=== PATIENT | male | born 1965 | race Caucasian/White ===

== ENCOUNTER 2018-01-14 12:09 | Emergency (ER) | payer SELFPAY ==
[2018-01-14 12:21] VITALS: BP 162/102; TEMP 98.6; O2SAT 99
--- NOTE | 2018-01-14 12:22 | ED.PDOC ---
History of Present Illness - General Chief Complaint: General Stated Complaint: R arm discomfort/numbness x 1 week Time Seen by Provider: 01/14/18 12:19 Source: patient, RN notes reviewed, Vital Signs reviewed Exam Limitations: no limitations - History of Present Illness Timing/Duration: 1 week Severity: mild Improving Factors: immobilization Worsening Factors: movement Associated Symptoms: denies symptoms Allergies/Adverse Reactions: Allergies NO KNOWN ALLERGY Allergy (Verified 01/14/18 12:13) Home Medications: Ambulatory Orders Celecoxib 100 mg PO BID #14 cap 01/14/18 Cyclobenzaprine HCl [Flexeril] 10 mg PO TID PRN #20 tab 01/14/18 Levetiracetam [Keppra] 500 mg PO BID 01/14/18 Review of Systems - Review of Systems Constitutional: States: no symptoms reported EENTM: States: no symptoms reported Respiratory: States: no symptoms reported Cardiology: States: no symptoms reported Gastrointestinal/Abdominal: States: no symptoms reported Genitourinary: States: no symptoms reported Musculoskeletal: States: joint pain, muscle stiffness Skin: States: no symptoms reported Neurological: States: no symptoms reported. Denies: numbness, paresthesia, tingling, tremors, weakness Endocrine: States: no symptoms reported Hematologic/Lymphatic: States: no symptoms reported Past Medical History (General) - Patient Medical History Hx Seizures: Yes Hx Stroke: No Hx Congestive Heart Failure: No Hx Hypertension: Yes Hx Diabetes: No - Vaccination History Hx Tetanus, Diphtheria Vaccination: - unknown - Social History Hx Tobacco Use: Yes Hx Chewing Tobacco Use: Yes Family Medical History - Family History Mother Family History: No Known Physical Exam - Physical Exam General Appearance: Alert, Comfortable Ears, Nose, Throat: hearing grossly normal, normal ENT inspection, normal pharynx Neck: non-tender, full range of motion, supple, normal inspection Respiratory: chest non-tender, lungs clear, normal breath sounds, no respiratory distress, no accessory muscle use Cardiovascular/Chest: normal peripheral pulses, regular rate, rhythm, no edema, no gallop, no JVD, no murmur Peripheral Pulses: radial,right: 2+ Gastrointestinal/Abdominal: non tender, soft Back Exam: normal inspection, no CVA tenderness, no vertebral tenderness Extremity: normal range of motion, other - focal tenderness of the bicept tendong, pain to forced extention of right arm over same area, no redness 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 Copy, Patient Portal Self Enrollment Instructions: Tendonitis (DC) Diet: resume usual diet Activity: other - no activity to right arm for one week Prescriptions: Celecoxib 100 mg PO BID #14 cap Cyclobenzaprine HCl [Flexeril] 10 mg PO TID PRN #20 tab PRN Reason: Pain Home Medications: Ambulatory Orders Celecoxib 100 mg PO BID #14 cap 01/14/18 Cyclobenzaprine HCl [Flexeril] 10 mg PO TID PRN #20 tab 01/14/18 Levetiracetam [Keppra] 500 mg PO BID 01/14/18
== END 2018-01-14 12:33 | disposition home or self-care (01) ==
LOC: ER 12:09
DX: M75.21 Bicipital tendinitis, right shoulder (principal); I10 Essential (primary) hypertension; R56.9 Unspecified convulsions; Z79.899 Other long term (current) drug therapy

== ENCOUNTER 2018-11-10 14:56 | Inpatient (IN) | payer SELFPAY ==
[2018-11-10] MEDS ORDERED: ONDANSETRON INJ 4 MG/2 ML VIAL IV ONE (17:07)
[2018-11-10] MEDS ORDERED: SODIUM CHLORIDE 0.9% (FLUSH) 10 ML SYG IV PRN ×2 (17:07→20:41)
[2018-11-10] MEDS ORDERED: SODIUM CHLORIDE 0.9% 1000ML 1,000 ML IVS ONE (17:07)
[2018-11-10] MEDS ORDERED: KETOROLAC TROMETHAMINE INJ 30 MG/ML VIAL IV ONE (17:07)
--- NOTE | 2018-11-10 17:43 | ED.PDOC ---
History of Present Illness - General Chief Complaint: GI Problem Stated Complaint: Nasal congestion, N/V/D, fever Time Seen by Provider: 11/10/18 17:07 Information Source: patient Exam Limitations: no limitations - History of Present Illness Initial Comments: PT PRESENTS TO THE ED WITH COMPLAINT OF NAUSEA, VOMITING, DIARRHEA, NASAL CONGESTION, AND HEADACHE. PT REPORTS 1-2 WATERY FOUL SMELLING STOOLS DAILY. PT ADMITS TO HEAVY ALCOHOL USE DAILY. HE DENIES, FEVER, CHILLS, OR ABD PAIN. Improving Factors: nothing Worsening Factors: nothing Associated Symptoms: diarrhea, fatigue, headache, nausea/vomiting Review of Systems - Review of Systems Constitutional: States: malaise. Denies: chills, fever EENTM: States: nose congestion. Denies: throat pain Respiratory: Denies: cough, short of breath Cardiology: Denies: chest pain, palpitations Gastrointestinal/Abdominal: States: diarrhea, nausea, vomiting. Denies: abdominal pain Genitourinary: Denies: dysuria, frequency Musculoskeletal: Denies: joint pain, joint swelling Skin: Denies: dryness, lesions Neurological: States: headache. Denies: numbness Past Medical History (General) - Patient Medical History Hx Seizures: Yes Hx Stroke: No Hx Congestive Heart Failure: No Hx Hypertension: Yes Hx Diabetes: No Surgical History: tonsillectomy - Vaccination History Hx Tetanus, Diphtheria Vaccination: - unknown Hx Influenza Vaccination: No Hx Pneumococcal Vaccination: No - Social History Hx Tobacco Use: No Hx Chewing Tobacco Use: Yes Hx Alcohol Use: No Family Medical History - Family History Mother Family History: No Known Living Status: Still Living Physical Exam - Physical Exam General Appearance: Alert, No apparent distress, Well Developed, Well Hydrated, Well Nourished Eyes, Ears, Nose, Throat Exam: normal ENT inspection Neck: normal inspection Respiratory: lungs clear, normal breath sounds, no respiratory distress Cardiovascular/Chest: regular rate, rhythm, no murmur Gastrointestinal/Abdominal: normal bowel sounds, non tender, soft Extremity: non-tender, normal inspection Neurologic: alert, normal mood/affect, oriented x 3 Skin Exam: normal color, warm/dry Departure - Departure Clinical Impression: Hypertension, Hyponatremia, Headache, Acute gastroenteritis, Alcohol abuse Time of Disposition: 18:53 Disposition: Admit Patient Condition: Fair Departure Forms: ED Discharge - Pt. Copy, Patient Portal Self Enrollment Referrals: UNKNOWN,PHYSICIAN [Primary Care Provider] - 1-2 Weeks Decision To Admit - Decistion To Admit Decision to Admit Reason: Admit from ER Decision to Admit Date: 11/10/18 Decision to Admit Time: 18:54 - CASE DISCUSSED WITH FADUMO SHOOK TESTING ANALYST WHO AGREES TO ADMIT
[2018-11-10] MEDS ORDERED: LABETALOL INJ 5 MG/ML VIAL IV ONE (18:55)
--- NOTE | 2018-11-10 20:17 | HP ---
SUPERVISING PHYSICIAN: Doroteo Paris M.D. CHIEF COMPLAINT: Nasal congestion, nausea and vomiting, diarrhea and fever. HISTORY OF PRESENT ILLNESS: This is a 53 year-old male patient with no significant past medical history. He came to the Emergency Room with complaints of nausea, vomiting, diarrhea, nasal congestion with concern for sinus infection. He said that has been pretty much going on since Friday. He could not really tell me exactly how high his fever has gotten. He went to the Emergency Room and was seen by the E. R. physician who did some labs that showed hyponatremia. Sodium was 125. His diarrhea had only been since yesterday afternoon and this morning. He has not had any since this morning. He has not been around anyone who is sick. He does not know if he really ate anything abnormal. He was also noted to have a significantly high blood pressure. In the E. R. he was given some Toradol for his headache and Labetalol 10 mg times 1. This did bring his blood pressure down a little bit. At time of examination the patient is alert. States that he does have a little problem with equilibrium lately but does not feel dizzy at this time. He also got some Zofran in the Emergency Room as well. PAST MEDICAL HISTORY: None. PAST SURGICAL HISTORY: None. CURRENT MEDICATIONS: 1. He uses BC powder daily. ALLERGIES: NO KNOWN DRUG ALLERGIES. FAMILY HISTORY: Both parents have hypertension. SOCIAL HISTORY: No smoking. He does drink about a 12 pack of beer most nights of the week. No illicit drugs. REVIEW OF SYSTEMS: CONSTITUTIONAL: No fever or chills. No recent weight loss or weight gain. HEENT: Positive for headaches. No ear pain. No eye pain. A little bit of nasal stuffiness. No throat pain. CARDIOVASCULAR: No chest pain, palpitations or peripheral edema. RESPIRATORY: No cough, hemoptysis or pleuritic chest pain. GASTROINTESTINAL: Positive for nausea, vomiting, diarrhea. No constipation. No significant abdominal pain. GENITOURINARY: No dysuria, frequency or flank pain. HEMATOLOGIC: No easy bruising or transfusion reaction. ENDOCRINE: No polydipsia, polyuria or polyphagia. No heat or cold intolerance. SKIN: No lesions, rashes or wounds. PHYSICAL EXAMINATION: VITAL SIGNS: Blood pressure 184/101, heart rate 66, respiratory rate 16, temperature 98.4, oxygen saturation 98%. GENERAL: Mr. Murray is a 53 year-old male patient in no distress. CHEST: Lungs are clear to auscultation bilaterally. CARDIOVASCULAR: Regular rate and rhythm. Normal S1 and S2. ABDOMEN: Soft. Positive bowel sounds. GENITOURINARY: Exam is deferred. EXTREMITIES: Lower extremities with no edema. NEUROLOGIC: The patient is alert and oriented. LABORATORY: White count 7.7, hemoglobin 14.0, hematocrit 39.7, platelet count 219. Sodium 125, potassium 3.7, chloride 89, CO2 is 25, BUN is less than 5, creatinine 0.58, glucose 102, calcium 9.3. Bilirubin 1.2. ASSESSMENT: 1. Hyponatremia. 2. Hypertension. 3. Gastroenteritis. 4. Intractable headache. 5. ETOH abuse. PLAN: At this time will place the patient on normal saline at 125. Will recheck the labs in the morning and see we have any improvement. Additionally it is quite concerning that he has such a high blood pressure and a consistent headache. I am going to go ahead and do a CT scan of the head just to ensure that there is no active disease process. After that I will give him some medications to bring his blood pressure down. Will watch for DTs due to his alcohol use. He apparently has not had anything in a couple of days. If he has another liquid stool we probably need to get a sample of that and send off for study as well. #[id number] [facility]
[2018-11-10] MEDS ORDERED: SODIUM CHLORIDE 0.9% 1000ML 1,000 ML IVS PRN (20:41)
--- NOTE | 2018-11-10 21:04 | CT ---
EXAM: CT Head Without Intravenous Contrast CLINICAL HISTORY: 53 years old and is Male; headache, HTN TECHNIQUE: Axial computed tomography images of the head/brain without intravenous contrast. Sagittal and coronal reformatted images were created and reviewed. This CT exam was performed using one or more of the following dose reduction techniques: automated exposure control, adjustment of the mA and/or kV according to patient size, and/or use of iterative reconstruction technique. COMPARISON: No relevant prior studies available. FINDINGS: Limitations: None. Brain: Unremarkable. No hemorrhage. No significant white matter disease. No edema. Ventricles: Unremarkable. No ventriculomegaly. Bones/joints: Unremarkable. No acute fracture. Soft tissues: Unremarkable. Sinuses: Unremarkable as visualized. No acute sinusitis. Mastoid air cells: Unremarkable as visualized. No mastoid effusion. IMPRESSION: No acute findings. Electronically signed by: Kim Berger MD 11/10/2018 9:02 PM CDT
[2018-11-10] MEDS: IV SET AND CAP CHANGE INJ INJ SCH (21:29)
[2018-11-10] MEDS ORDERED: amLODIPine BESYLATE 5 MG TAB PO ONE (21:35)
[2018-11-10] MEDS: ACETAMINOPHEN-CAFF-BUTALBITAL 1 EA TAB PO PRN (21:45)
[2018-11-10] MEDS ORDERED: chlordiazePOXIDE HCL 25 MG CAP PO ONE (22:00)
[2018-11-10] MEDS ORDERED: THIAMINE HCL INJ 100 MG/ML VIAL ONE (22:01)
[2018-11-10] MEDS ORDERED: chlordiazePOXIDE HCL 25 MG CAP ONE (22:02)
[2018-11-10] MEDS ORDERED: MULTIPLE VITAMIN 10 ML VIAL ONE (22:02)
[2018-11-10] MEDS: MULTIPLE VITAMIN INJ 10 ML, THIAMINE HCL INJ 100 MG in SODIUM CHLORIDE 0.9% 1000ML 1,00... IVS SCH (22:05)
[2018-11-10] MEDS: FOLIC ACID 1 MG TAB PO SCH (22:06)
[2018-11-11] MEDS: TEMAZEPAM 15 MG CAP PO PRN ×2 (00:18→23:03)
[2018-11-11] MEDS: ACETAMINOPHEN-CAFF-BUTALBITAL 1 EA TAB PO PRN ×3 (05:32→21:24)
[2018-11-11] MEDS: OMEPRAZOLE CAP 20 MG CAP PO SCH (06:06)
[2018-11-11] MEDS: FOLIC ACID 1 MG TAB PO SCH (10:12)
--- NOTE | 2018-11-11 11:52 | RAD ---
EXAM DESCRIPTION: Abdomen Flat Upright CLINICAL HISTORY: abd pain COMPARISON: None. TECHNIQUE: AP supine and upright views the abdomen FINDINGS: The exam reveals no free air. Mildly dilated small bowel is observed in the left upper quadrant. No organomegaly is seen. Phleboliths are observed in the pelvis. No renal calcifications are seen. The lung bases are clear. IMPRESSION: Mildly dilated small bowel is observed in the left upper abdomen may be the result of an ileus or partial bowel obstruction. Electronically signed by: Frankie Rivera MD 11/11/2018 11:49 AM CDT
--- NOTE | 2018-11-11 11:53 | CT ---
PROVIDED CLINICAL HISTORY/REASON FOR EXAM: abd pain STUDY TYPE/TECHNIQUE: CT ABDOMEN PELVIS WITHOUT IV CONTRAST This exam was performed according to our departmental dose-optimization program, which includes automated exposure control, adjustment of the mA and/or kV according to patient size and/or use of iterative reconstruction technique. COMPARISON: None at time of initial interpretation. FINDINGS: Visualized lung bases are grossly unremarkable. Evaluation limited by lack of intravenous contrast. The liver is unremarkable. No suspicious hepatic lesion. No biliary dilatation. Cholelithiasis. The spleen, pancreas and adrenal glands are unremarkable. Normal kidneys. No hydronephrosis. No urolithiasis. Bladder wall thickening. There are multifocal small segments of colon which demonstrate mural thickening and adjacent pericolonic fat stranding. No free air. No adjacent fluid collection. No pneumatosis. No portal venous gas. Normal appendix. No adenopathy. No focal fluid collection. No free air. Normal caliber abdominal aorta. Mild atherosclerotic plaque small gastric diverticulum series 2 image 41. No acute or suspicious osseous abnormality. Scattered degenerative changes present. IMPRESSION: 1. Mild multifocal acute uncomplicated colitis. 2. Nonspecific bladder wall thickening. Recommend correlation with urinalysis. Electronically signed by: Mert Ashley MD 11/11/2018 11:51 AM CDT
[2018-11-11] MEDS ORDERED: fentaNYL CITRATE INJ 50 MCG/ML AMP IV ONE (14:06)
--- NOTE | 2018-11-11 14:17 | US ---
EXAM DESCRIPTION: Abdomen,Complete: Ultrasound. CLINICAL HISTORY: Abdominal pain COMPARISON: CT abdomen and pelvis, x-ray of the abdomen on the same visit. TECHNIQUE: Transabdominal scannin-dimensional and Doppler modes. FINDINGS: Gallbladder: Normal size with no intraluminal stones or sludge. Normal wall thickness 2.3 mm with no fluid. Nontender with transducer pressure. Common bile duct: 5.4 mm normal caliber. Liver: Increased echogenicity diffusely. No focal abnormalities. Hepatopedal flow in the portal vein with normal intrahepatic ducts. Smooth capsule with no ascites. 15.6 cm long axis right lobe. Pancreas: Normal echogenicity of included segments with pancreatic duct not dilated.. Abdominal aorta: Proximal segment obscured by intestinal gas. Normal caliber of the mid segment in the distal segment at the bifurcation. IVC: visualized; normal caliber. Spleen normal echogenicity; long axis measurement is 14.6 cm. Right kidney: 13.1 cm long axis. Normal cortical echogenicity with minimal cortical thinning. No hydronephrosis, no echogenic stones, and no perirenal fluid. Left kidney: 12.9 cm long axis with normal cortical thickness and echogenicity. No hydronephrosis, no echogenic stones, and no perirenal fluid. IMPRESSION: 1. Steatosis of the liver. Normal size, vascularity and ducts. Smooth capsule with no ascites. Normal gallbladder and normal common bile duct caliber. Pancreas is negative. 2. Spleen is borderline enlarged but no focal lesions or ascites. Abdominal aorta normal caliber mid and distal segment with proximal segment obscured by intestinal gas. 3. Minimal right renal cortical thinning, otherwise both kidneys are negative. Electronically signed by: Oilvier Deng MD 11/11/2018 2:15 PM CDT
[2018-11-11] MEDS ORDERED: metroNIDAZOLE IV PREMIX 500MG 100 ML IVPB ONE ×2 (16:37→19:36)
[2018-11-11] MEDS: KETOROLAC TROMETHAMINE INJ 30 MG/ML VIAL IV SCH ×2 (16:50→20:40)
[2018-11-11] MEDS: metroNIDAZOLE IV PREMIX 500MG 500 MG in PREMIX BAG 1 BAG IVPB SCH ×2 (16:51→23:02)
--- NOTE | 2018-11-11 17:41 | PN ---
DATE: 11/11/18 SUPERVISING PHYSICIAN: Doroteo Paris M.D. SUBJECTIVE: The patient is sitting up on the side of his bed. Continues to have a headache. In the past he said the only thing that has worked on it is Rocephin antibiotics. I explained to the patient that we could not give Rocephin for a headache and that I would have to wait to see what his testing results came back before prescribing anything. He also said he has continued to have diarrhea. This morning in about a 3 hour span he had 6 separate diarrhea type stools. Otherwise no complaints of shortness of breath or chest pain. OBJECTIVE: VITAL SIGNS: Temperature 97.4, heart rate 71, blood pressure 112/67, respiratory rate 16, O2 sat 98% on room air. RESPIRATORY: Essentially clear to auscultation bilaterally. CARDIAC: Regular rate and rhythm. GASTROINTESTINAL: Abdomen is soft. It is nondistended, but it is moderately tender diffusely, maybe slightly more tender in the left and right upper quadrant. Bowel sounds are positive. NEUROLOGIC: He is awake, alert and oriented times three. LABORATORY: Sodium 131, potassium 3.7, chloride 97, carbon dioxide 24, BUN 6, creatinine 0.64. WBCs are 7.7, hemoglobin 14, hematocrit 39.7. He does have a left shift on his differential. Stool for occult blood is pending. C-Difficile on his stool is pending and stool leukocytes are pending. Abdomen and pelvis CT shows: 1. Mild multifocal acute uncomplicated colitis. 2. Nonspecific bladder wall thickening. Recommend correlation with urinalysis. Abdominal x-ray shows mildly dilated small bowel is observed in the left upper abdomen. It may be the result of an ileus or partial bowel obstruction. Abdominal sonogram shows: 1. Steatosis of the liver. Normal size, vascularity and ducts. Smooth capsule with no ascites. Normal gallbladder and normal common bile duct caliber. Pancreas is negative. 2. Spleen is borderline enlarged but no focal lesions or ascites. Abdominal aorta is normal caliber mid and distal segment with proximal segment obscured by intestinal gas. 3. Minimal right renal cortical thinning, otherwise both kidneys are negative. All other labs and films have been reviewed via the EMR. ASSESSMENT: 1. Hyponatremia. 2. Diarrhea with gastroenteritis awaiting lab results. 3. Malignant hypertension on admission. He has been placed on Norvasc and his blood pressures have improved. 4. Intractable headache. He has had these headaches for several years. He is now on Ketorolac. 5. ETOH abuse. PLAN: We will continue present supportive care. He had complained of diarrhea and abdominal pain earlier which is why I completed the abdominal studies. I spoke with Dr. Mena and he felt like it was a GI issue and will treat him at this point with Flagyl. Depending on the results of the stool studies, I will either add Levaquin and/or oral vancomycin depending on results. He will also be placed on bowel rest as well as with a primary IV fluids. He does not have a PCP so I will send him to [facility]. I have ordered lab and x- ray for in the morning. He will need a GI consultation after discharge. Will continue to monitor closely and follow as needed. #[id number] [facility]
[2018-11-11] MEDS ORDERED: SODIUM CHLORIDE 0.9% 1000ML 1,000 ML ONE (19:35)
[2018-11-11] MEDS ORDERED: THIAMINE HCL INJ 100 MG/ML VIAL ONE (19:35)
[2018-11-11] MEDS ORDERED: MULTIPLE VITAMIN 10 ML VIAL ONE (19:36)
[2018-11-11] MEDS: MULTIPLE VITAMIN INJ 10 ML, THIAMINE HCL INJ 100 MG in SODIUM CHLORIDE 0.9% 1000ML 1,00... IVS SCH (20:39)
[2018-11-11] MEDS ORDERED: chlordiazePOXIDE HCL 25 MG CAP PO ONE (22:00)
[2018-11-12] MEDS: KETOROLAC TROMETHAMINE INJ 30 MG/ML VIAL IV SCH ×2 (03:36→09:00)
[2018-11-12] MEDS: ACETAMINOPHEN-CAFF-BUTALBITAL 1 EA TAB PO PRN ×2 (03:59→19:39)
[2018-11-12] MEDS: OMEPRAZOLE CAP 20 MG CAP PO SCH (06:20)
[2018-11-12] MEDS ORDERED: metroNIDAZOLE IV PREMIX 500MG 100 ML IVPB ONE ×3 (07:03→19:30)
--- NOTE | 2018-11-12 07:07 | RAD ---
EXAM DESCRIPTION: Abdomen, 2 radiographs CLINICAL HISTORY: Abdomen pain. Colitis FINDINGS/ IMPRESSION: Scattered large and small intestinal bowel gas with a few short segment air-fluid levels. No luminal distention to diagnose bowel obstruction. No pneumatosis or evidence of free intraperitoneal air No organomegaly or obvious abdominal mass lesion. Visualized lung bases are clear Electronically signed by: Bubba Fernandez MD 11/12/2018 7:05 AM CDT
[2018-11-12] MEDS: metroNIDAZOLE IV PREMIX 500MG 500 MG in PREMIX BAG 1 BAG IVPB SCH ×2 (08:00→16:32)
[2018-11-12] MEDS: FOLIC ACID 1 MG TAB PO SCH (09:00)
[2018-11-12] MEDS ORDERED: POTASSIUM CHLORIDE 20 MEQ TAB PO ONE (09:30)
[2018-11-12] MEDS ORDERED: MAGNESIUM SULFATE PREMIX 2GM 2 GM in PREMIX BAG 1 BAG IVPB ONE (09:32)
[2018-11-12] MEDS ORDERED: levoFLOXacin 500MG IV 100 ML IVPB ONE (09:38)
[2018-11-12] MEDS ORDERED: MAGNESIUM SULFATE PREMIX 2GM 50 ML IVPB ONE (09:39)
[2018-11-12] MEDS: BIFIDOBACTERIUM INFANTIS 4 MG CAP PO SCH ×2 (09:43→20:41)
[2018-11-12] MEDS: levoFLOXacin 500MG IV 500 MG in PREMIX BAG 1 BAG IVPB SCH (09:44)
[2018-11-12] MEDS: ACETAMINOPHEN W/ COD #4 TAB 1EA TAB PO PRN ×3 (09:55→20:40)
[2018-11-12] MEDS: KCL 20MEQ/D5NS 1,000 ML IVS PRN (12:12)
--- NOTE | 2018-11-12 15:00 | PN ---
SUPERVISING PHYSICIAN: Doroteo Paris M.D. DATE: 11/12/18 SUBJECTIVE: The patient is sitting up on the side of his bed. He still feels quite weak. He does not have any nausea or vomiting, but just did not feel like even eating his Jello. His diarrhea is somewhat better. He said it is "thickening up," but still feels quite weak. His headache has improved with the Tylenol #4. He said it is still a dull headache, but the Tylenol #4 has helped more than anything previously. OBJECTIVE: VITAL SIGNS: Temperature 98.9. He did have a temperature overnight of 102.2. Heart has been as high as 93. It is now 72. Blood pressure 162/74. Respiratory rate 16. O2 saturation 96% on room air. RESPIRATORY: Essentially clear to auscultation bilaterally. CARDIAC: Regular rate and rhythm. GASTROINTESTINAL: Abdomen is soft, nondistended. It is diffusely tender across the right upper epigastric and left upper quadrant of his abdomen. There is no rebound tenderness or guarding. Bowel sounds are positive. NEUROLOGIC: He is awake, alert and oriented times three. LABORATORY: WBCs 4,500, hemoglobin 13.1, hematocrit 37.3. He does have a left shift on his differential. Sodium 130, potassium 2.9, chloride 98, magnesium 1.5. Amylase 45, lipase 47. Stool for occult blood is positive x2. Stool culture is pending. Fecal leukocytes are positive and Clostridioides difficile is negative for antigen and toxin. Abdominal x-ray shows scattered large and small intestinal bowel gas with few short segment of air-fluid levels. No luminal distention to diagnose bowel obstruction. No pneumatosis or evidence of free intraperitoneal air. No organomegaly or obvious abdominal mass lesion visualized. Lung bases are clear. All other labs and films have been reviewed via the EMR. ASSESSMENT: 1. Gastroenteritis with continuing diarrhea. Stool culture is pending. It is most likely bacterial in origin. He did run a fever last night and his symptoms have improved with Levaquin and Flagyl 2. Hyponatremia, improving. 3. Malignant hypertension on admission. He is on Norvasc presently and his blood pressures have improved. 4. Intractable headache. He has had these headaches for several years, but are somewhat worse during this hospital stay. They have been mostly relieved with Tylenol #4. 5. ETOH abuse. PLAN: We will continue present supportive care. At this point, I have advanced his diet and he is getting clear liquids, although he is not completely tolerating those at this time. His diarrhea has improved. If needed, I can put him on some anti-diarrhea medicine tomorrow. He has also been put on a probiotic. We will advance his diet as soon as he is able to tolerate the clear liquids. Continue with IV fluids. We may need to add an additional medication to his blood pressure medication to control his blood pressure. I will continue him on the Tylenol #4 for his headache and he may need to go home on a few Tylenol #4s until he can get a complete headache workup. At this point, he has not had any signs or symptoms of any alcohol withdrawals. I have given him some potassium supplementation as well as some magnesium supplementation. I will repeat his lab in the morning. We will continue to monitor the patient closely and follow as needed. #[id number] [facility]
[2018-11-12] MEDS: LOPERAMIDE CAP 2 MG CAP PO PRN ×2 (17:01→23:03)
[2018-11-12] MEDS ORDERED: THIAMINE HCL INJ 100 MG/ML VIAL ONE (19:30)
[2018-11-12] MEDS ORDERED: SODIUM CHLORIDE 0.9% 1000ML 1,000 ML ONE (19:30)
[2018-11-12] MEDS ORDERED: MULTIPLE VITAMIN 10 ML VIAL ONE (19:31)
[2018-11-12] MEDS: MULTIPLE VITAMIN INJ 10 ML, THIAMINE HCL INJ 100 MG in SODIUM CHLORIDE 0.9% 1000ML 1,00... IVS SCH (20:41)
[2018-11-12] MEDS: TEMAZEPAM 15 MG CAP PO PRN (23:03)
[2018-11-13] MEDS: metroNIDAZOLE IV PREMIX 500MG 500 MG in PREMIX BAG 1 BAG IVPB SCH ×4 (00:08→23:54)
[2018-11-13] MEDS: ACETAMINOPHEN W/ COD #4 TAB 1EA TAB PO PRN ×5 (04:19→22:09)
[2018-11-13] MEDS: OMEPRAZOLE CAP 20 MG CAP PO SCH (06:09)
[2018-11-13] MEDS: KCL 20MEQ/D5NS 1,000 ML IVS PRN (06:09)
[2018-11-13] MEDS ORDERED: levoFLOXacin 500MG IV 100 ML IVPB ONE (07:12)
[2018-11-13] MEDS ORDERED: metroNIDAZOLE IV PREMIX 500MG 100 ML IVPB ONE ×3 (07:13→19:18)
[2018-11-13] MEDS: FOLIC ACID 1 MG TAB PO SCH (08:20)
[2018-11-13] MEDS: LOPERAMIDE CAP 2 MG CAP PO PRN ×2 (08:20→20:51)
[2018-11-13] MEDS: BIFIDOBACTERIUM INFANTIS 4 MG CAP PO SCH ×2 (08:20→20:47)
[2018-11-13] MEDS ORDERED: MAGNESIUM SULFATE PREMIX 2GM 2 GM in PREMIX BAG 1 BAG IVPB ONE (08:48)
[2018-11-13] MEDS ORDERED: POTASSIUM CHLORIDE 20 MEQ TAB PO ONE (08:49)
[2018-11-13] MEDS ORDERED: MAGNESIUM SULFATE PREMIX 2GM 50 ML IVPB ONE (08:58)
[2018-11-13] MEDS ORDERED: POTASSIUM CHLORIDE 20 MEQ TAB ONE (08:58)
[2018-11-13] MEDS: amLODIPine BESYLATE 5 MG TAB PO SCH (09:45)
[2018-11-13] MEDS: levoFLOXacin 500MG IV 500 MG in PREMIX BAG 1 BAG IVPB SCH ×2 (10:58→12:15)
[2018-11-13] MEDS ORDERED: chlordiazePOXIDE HCL 25 MG CAP PO ONE (15:21)
--- NOTE | 2018-11-13 16:57 | RAD ---
EXAM DESCRIPTION: Abdomen Flat Upright CLINICAL HISTORY: r/o bowel obstruction COMPARISON: None. TECHNIQUE: AP supine and upright views the abdomen FINDINGS: Dilated large and small bowel is observed throughout the abdomen. The appearance is most suggestive of an ileus. No organomegaly is seen. Phleboliths are observed in the pelvis. No worrisome calcifications are detected. The lung bases are clear. IMPRESSION: An abnormal bowel gas pattern is observed and felt most consistent with an ileus. Electronically signed by: Frankie Rivera MD 11/13/2018 4:55 PM CDT
--- NOTE | 2018-11-13 18:18 | CT ---
EXAM: CT Abdomen and Pelvis Without And With Intravenous Contrast CLINICAL HISTORY: The patient is 53 years old and is Male; worsening abd pain; fever TECHNIQUE: Axial computed tomography images of the abdomen and pelvis without contrast material in one or both body regions followed by contrast material and further imaging in one or both body regions. Sagittal and coronal reformatted images were created and reviewed. This CT exam was performed using one or more of the following dose reduction techniques: automated exposure control, adjustment of the mA and/or kV according to patient size, and/or use of iterative reconstruction technique. COMPARISON: No relevant prior studies available. FINDINGS: Lung bases: Unremarkable. No mass. No consolidation. ABDOMEN: Liver: Unremarkable. No mass. Gallbladder and bile ducts: Unremarkable. No calcified stones. No ductal dilation. Pancreas: Unremarkable. No mass. No ductal dilation. Spleen: Unremarkable. No splenomegaly. Adrenals: Unremarkable. No mass. Kidneys and ureters: Unremarkable. No solid mass. No obstructing stones. No hydronephrosis. Stomach and bowel: Mild wall thickening of distal small bowel within the right lower quadrant enteritis. No colon inflammatory changes. No evidence of obstruction. PELVIS: Appendix: No findings to suggest acute appendicitis. Bladder: Unremarkable. No mass. No stones. Reproductive: Unremarkable as visualized. ABDOMEN and PELVIS: Intraperitoneal space: Unremarkable. No free air. No significant fluid collection. Bones/joints: No acute fracture. No dislocation. Soft tissues: Unremarkable. Vasculature: Minimal scattered atherosclerotic calcifications. No abdominal aortic aneurysm. Lymph nodes: Unremarkable. No enlarged lymph nodes. IMPRESSION: Mild wall thickening of distal small bowel within the right lower quadrant enteritis. Electronically signed by: Wing Duarte MD 11/13/2018 6:15 PM CDT
[2018-11-13] MEDS ORDERED: SODIUM CHLORIDE 0.9% 1000ML 1,000 ML ONE (19:18)
[2018-11-13] MEDS ORDERED: THIAMINE HCL INJ 100 MG/ML VIAL ONE (19:18)
[2018-11-13] MEDS ORDERED: MULTIPLE VITAMIN 10 ML VIAL ONE (19:18)
[2018-11-13] MEDS: MULTIPLE VITAMIN INJ 10 ML, THIAMINE HCL INJ 100 MG in SODIUM CHLORIDE 0.9% 1000ML 1,00... IVS SCH (20:47)
[2018-11-13] MEDS: IV SET AND CAP CHANGE INJ INJ SCH (20:51)
[2018-11-13] MEDS: TEMAZEPAM 15 MG CAP PO PRN (22:09)
--- NOTE | 2018-11-13 22:16 | PN ---
DATE: 11/13/18 SUPERVISING PHYSICIAN: Doroteo Paris M.D. SUBJECTIVE: The patient complains that his abdominal pain is worse. He did start on a full liquid diet and shortly after taking that he has had some abdominal pain. He did also run a fever. Otherwise he denies any shortness of breath, chest pain, nausea, vomiting or diarrhea. OBJECTIVE: VITAL SIGNS: Temperature 101.1, heart rate 94, blood pressure 158/96, respiratory rate 18, O2 sat 97%. RESPIRATORY: Essentially clear to auscultation bilaterally. CARDIAC: Regular rate and rhythm. GASTROINTESTINAL: Abdomen is soft. It is nondistended. He does have some tenderness across the upper portion of his abdomen from the left upper quadrant epigastric to the left upper quadrant. There is no rebound tenderness or guarding. Bowel sounds are positive. NEUROLOGIC: He is awake, alert and oriented times three.a LABORATORY: WBCs are 3,800 with hemoglobin 12.9, hematocrit 37.0. There is no left shift on his differential. Sodium has improved but it is still slightly low at 132 with potassium 3.5. Magnesium 1.7. Stool culture is still pending. Blood cultures were just drawn. All other labs and films have been reviewed via the EMR. ASSESSMENT: 1. Gastroenteritis previously with diarrhea that is mostly resolved. Stool culture is pending. He is being treated with Levaquin and Flagyl. He again ran a fever today and blood cultures have been drawn. 2. Hyponatremia that continues to improve. He also has hypomagnesemia. 3. Malignant hypertension on admission. He is on Norvasc and his blood pressures have improved. 4. Intractable headache. He has had these headaches for several years, but are somewhat worse during this hospital stay. They have been mostly relieved with Tylenol #4. 5. ETOH abuse. PLAN: We will continue present supportive care. I have made the patient NPO again. Hopefully his abdominal pain will resolve. I have ordered an abdominal x-ray as well as a CT of the abdomen. I spoke briefly to Dr. Mena and he told me I could call him if there was any need for his services. I will continue with the Levaquin and Flagyl for now. His blood cultures were drawn. He continues to receive IV fluids. I have given him some oral potassium as well as some IV magnesium. I will recheck his labs in the morning. His blood pressure has improved on the Norvasc so we will continue that and continue with his Tylenol #4 as his headache has improved. He is not having any overt signs of alcohol withdrawal but I did give him 1 dose of Librium to see if that would help with any of his symptoms. I will call Dr. Mena if there is any need for a consultation. Will continue to monitor closely and follow as needed. #[id number] [facility]TDD
[2018-11-14] MEDS: KCL 20MEQ/D5NS 1,000 ML IVS PRN ×2 (05:31→15:53)
[2018-11-14] MEDS: OMEPRAZOLE CAP 20 MG CAP PO SCH (06:02)
[2018-11-14] MEDS ORDERED: metroNIDAZOLE IV PREMIX 500MG 100 ML IVPB ONE ×3 (07:23→19:12)
[2018-11-14] MEDS: metroNIDAZOLE IV PREMIX 500MG 500 MG in PREMIX BAG 1 BAG IVPB SCH ×3 (07:46→23:51)
[2018-11-14] MEDS: BIFIDOBACTERIUM INFANTIS 4 MG CAP PO SCH ×2 (08:27→20:42)
[2018-11-14] MEDS: FOLIC ACID 1 MG TAB PO SCH (08:27)
[2018-11-14] MEDS: amLODIPine BESYLATE 5 MG TAB PO SCH (08:27)
[2018-11-14] MEDS: ACETAMINOPHEN W/ COD #4 TAB 1EA TAB PO PRN ×4 (08:27→22:33)
[2018-11-14] MEDS ORDERED: MAGNESIUM SULFATE PREMIX 2GM 2 GM in PREMIX BAG 1 BAG IVPB ONE (09:02)
[2018-11-14] MEDS ORDERED: MAGNESIUM SULFATE PREMIX 2GM 50 ML IVPB ONE (10:48)
[2018-11-14] MEDS: ENOXAPARIN SODIUM 40 MG/0.4 ML SYG SUBCU SCH (10:51)
[2018-11-14] MEDS ORDERED: levoFLOXacin 500MG IV 100 ML IVPB ONE (12:26)
[2018-11-14] MEDS: levoFLOXacin 500MG IV 500 MG in PREMIX BAG 1 BAG IVPB SCH (12:28)
--- NOTE | 2018-11-14 17:36 | PN ---
DATE: 11/14/18 SUPERVISING PHYSICIAN: Doroteo Paris M.D. SUBJECTIVE: The patient had earlier had some complaints of nausea, vomiting, abdominal pain and some diarrhea, although the diarrhea has improved since he first came in. I changed his full liquids back to NPO status. He denies any shortness of breath or chest pain. He says his abdominal pain hurts worse when he stands up but it has improved since he is NPO. I discussed his plan of care in my discussion with Dr. Shan Gilmore, harvesting contractor in [place]. OBJECTIVE: VITAL SIGNS: Temperature 98.7. He has not had a temperature since yesterday afternoon at 2:00 PM when he had 101.1. Heart rate 75, blood pressure 135/80, respiratory rate 18, O2 sat 98%. RESPIRATORY: Essentially clear to auscultation bilaterally. CARDIAC: Regular rate and rhythm. ABDOMEN: Soft, nondistended. It is diffusely tender along the right upper, left upper and epigastric region. It does extend down slightly to the right lower quadrant. Bowel sounds are positive. NEUROLOGIC: He is awake, alert and oriented times three. LABORATORY: WBCs are 4,600 with hemoglobin 12.7, hematocrit 36.8. Sodium is slightly low at 133 with magnesium 1.7. Liver enzymes are within normal limits except for his alkaline phosphatase is slightly low at 36. Preliminary blood cultures show no growth after 24 hours. Stool culture is still pending. Abdomen and pelvis CT from yesterday shows mild wall thickening of distal small bowel with the right lower quadrant enteritis. All other labs and films have been reviewed via the EMR. ASSESSMENT: 1. Gastroenteritis previously with diarrhea that continues, but has improved. Stool culture is pending. Blood cultures are pending. He is presently being treated with Levaquin and Flagyl. 2. Hyponatremia that continues to improve. He continues to have hypomagnesemia. 3. Malignant hypertension on admission. He is on Norvasc and his blood pressures have improved. 4. Intractable headache. He has had these headaches for several years, but are somewhat worse during this hospital stay and with the abdominal pain. They have been mostly relieved with Tylenol #4. 5. ETOH abuse. PLAN: We will continue present supportive care. I have given him some magnesium supplementation and will redraw his lab in the morning. I spoke with Dr. Shan Gilmore, harvesting contractor in [place]. After discussing his case he felt that the patient should continue on NPO status and slowly advance his diet. If over the next 24 to 36 hours he again had gastric discomfort after advancing his diet, that he would need to be transferred to [place] for endoscopy and a further GI workup as there may be some underlying chronic colitis or Crohn's disease. This evening we will advance him to a clear liquid diet as well as in the morning. If he tolerates that tomorrow he can be advanced to a full liquid. He will need to followup in [place] with a GI doctor whether it be in transfer or in followup. I have also added an abdominal x-ray for tomorrow. Will continue with his antibiotics and monitor his cultures, and follow as needed. [facility][id number] [facility]
[2018-11-14] MEDS ORDERED: SODIUM CHLORIDE 0.9% 1000ML 1,000 ML ONE (19:11)
[2018-11-14] MEDS ORDERED: THIAMINE HCL INJ 100 MG/ML VIAL ONE (19:11)
[2018-11-14] MEDS ORDERED: MULTIPLE VITAMIN 10 ML VIAL ONE (19:12)
[2018-11-14] MEDS: MULTIPLE VITAMIN INJ 10 ML, THIAMINE HCL INJ 100 MG in SODIUM CHLORIDE 0.9% 1000ML 1,00... IVS SCH (20:43)
[2018-11-14] MEDS: TEMAZEPAM 15 MG CAP PO PRN (22:32)
[2018-11-15] MEDS: OMEPRAZOLE CAP 20 MG CAP PO SCH (06:07)
[2018-11-15] MEDS: ACETAMINOPHEN W/ COD #4 TAB 1EA TAB PO PRN ×4 (06:09→22:10)
[2018-11-15] MEDS ORDERED: metroNIDAZOLE IV PREMIX 500MG 100 ML IVPB ONE ×3 (06:56→19:04)
--- NOTE | 2018-11-15 07:43 | RAD ---
EXAM: Two view(s) of the abdomen. INDICATION: Abdominal pain, acute. COMPARISON: 11/13/2018. FINDINGS: Intraperitoneal free air: Negative. Bowel: There are mildly dilated loops of small bowel which measure up to 3.4 cm in diameter with air-fluid levels. Mild gaseous distention of the colon. Bones: Unremarkable. Other: None. IMPRESSION: Dilated loops of small bowel with air-fluid levels, which may be due to an ileus or enteritis. Electronically signed by: Mendoza Abel MD 11/15/2018 7:41 AM CDT Workstation: [id number]
[2018-11-15] MEDS: metroNIDAZOLE IV PREMIX 500MG 500 MG in PREMIX BAG 1 BAG IVPB SCH ×2 (08:34→16:24)
[2018-11-15] MEDS: BIFIDOBACTERIUM INFANTIS 4 MG CAP PO SCH ×2 (08:34→20:28)
[2018-11-15] MEDS: FOLIC ACID 1 MG TAB PO SCH (08:35)
[2018-11-15] MEDS: amLODIPine BESYLATE 5 MG TAB PO SCH (08:35)
[2018-11-15] MEDS: ENOXAPARIN SODIUM 40 MG/0.4 ML SYG SUBCU SCH (08:35)
[2018-11-15] MEDS ORDERED: levoFLOXacin 500MG IV 100 ML IVPB ONE (11:26)
[2018-11-15] MEDS: levoFLOXacin 500MG IV 500 MG in PREMIX BAG 1 BAG IVPB SCH (11:28)
--- NOTE | 2018-11-15 16:23 | PN ---
DATE: 11/15/18 SUPERVISING PHYSICIAN: Doroteo Paris M.D. SUBJECTIVE: The patient continues to have some abdominal pain even though he is tolerating a little bit of clear liquids. He again notes that his pain seems to be worse when he stands up. I discussed with him again that we are going to see if he will tolerate a diet today, if not then more likely will get him transferred in the morning. Otherwise he has had no other complaints. OBJECTIVE: VITAL SIGNS: He remains afebrile, temperature 98.5, pulse 72, blood pressure 139/78, respirations 16, satting 99% on room air. I's and O's show a negative balance of 2510 with 2415 in, 4925 out. Weight is 102.6 kg. GENERAL: The patient is resting. Appears to be in no acute distress. CHEST: Lungs were clear to auscultation. HEART: Regular rate and rhythm. ABDOMEN: Soft with continued tenderness on palpation diffusely along the right upper quadrant to the left lateral. Bowel sounds were positive. There is no guarding. No point tenderness. No rebound. NEUROLOGIC: He is alert and oriented times three. LABORATORY: White count 5,300, hemoglobin 12.4, hematocrit 35.9, platelet count 197,000. Differential shows to be without a left shift. Chemistry showed a mildly low sodium at 134 which improved since yesterday. Potassium is normal at 3.9, magnesium 1.8, BUN less than 5, creatinine 0.56, CRP was elevated at 13.4. MICROBIOLOGY: Blood cultures remain negative at 24 hours. Stool culture showed no enteric pathogens isolated. RADIOLOGY: Abdominal x-ray per radiology interpretation this morning showed dilated loops of small bowel with air-fluid level which may be due to ileus or enteritis. ASSESSMENT: 1. Gastroenteritis versus enteritis with continued diarrhea with blood cultures remaining negative. Stool culture showing no enteric growth and the patient remaining on parenteral antibiotics to include Flagyl and Levaquin. 2. Hyponatremia that continues to improve. He continues to have hypomagnesemia. 3. Malignant hypertension on admission. He is on Norvasc and his blood pressures have improved. 4. Intractable headache. He has had these headaches for several years, but are somewhat worse during this hospital stay and with the abdominal pain. They have been mostly relieved with Tylenol #4. 5. ETOH abuse. PLAN: Will continue to try to advance the patient's diet today. I did discuss with him that if he is unable to tolerate any diet and his abdominal pain persists, then I will discuss transferring tomorrow for further GI workup to include need to rule out Crohn's versus other infectious process with colonoscopy. Until then will continue to monitor and treat as needed. #[id number] [facility]TDD
[2018-11-15] MEDS ORDERED: THIAMINE HCL INJ 100 MG/ML VIAL ONE (19:04)
[2018-11-15] MEDS ORDERED: SODIUM CHLORIDE 0.9% 1000ML 1,000 ML ONE (19:04)
[2018-11-15] MEDS ORDERED: MULTIPLE VITAMIN 10 ML VIAL ONE (19:04)
[2018-11-15] MEDS: MULTIPLE VITAMIN INJ 10 ML, THIAMINE HCL INJ 100 MG in SODIUM CHLORIDE 0.9% 1000ML 1,00... IVS SCH (20:28)
[2018-11-15] MEDS: TEMAZEPAM 15 MG CAP PO PRN (22:10)
[2018-11-16] MEDS: metroNIDAZOLE IV PREMIX 500MG 500 MG in PREMIX BAG 1 BAG IVPB SCH ×4 (00:05→23:33)
[2018-11-16] MEDS: OMEPRAZOLE CAP 20 MG CAP PO SCH (06:13)
[2018-11-16] MEDS ORDERED: metroNIDAZOLE IV PREMIX 500MG 100 ML IVPB ONE ×3 (07:42→20:04)
[2018-11-16] MEDS: BIFIDOBACTERIUM INFANTIS 4 MG CAP PO SCH ×2 (08:49→20:44)
[2018-11-16] MEDS: amLODIPine BESYLATE 5 MG TAB PO SCH (08:49)
[2018-11-16] MEDS: FOLIC ACID 1 MG TAB PO SCH (08:49)
[2018-11-16] MEDS: ACETAMINOPHEN W/ COD #4 TAB 1EA TAB PO PRN (08:53)
[2018-11-16] MEDS ORDERED: levoFLOXacin 500MG IV 100 ML IVPB ONE (11:04)
[2018-11-16] MEDS: ENOXAPARIN SODIUM 40 MG/0.4 ML SYG SUBCU SCH (11:11)
[2018-11-16] MEDS: levoFLOXacin 500MG IV 500 MG in PREMIX BAG 1 BAG IVPB SCH (11:12)
[2018-11-16] MEDS: HYDROcodone 5MG/APAP 325MG 1 EA TAB PO PRN ×3 (13:46→22:01)
[2018-11-16] MEDS: KCL 20MEQ/D5 1/2NS 1,000 ML IVS PRN (17:46)
[2018-11-16] MEDS: IV SET AND CAP CHANGE INJ INJ SCH (20:44)
--- NOTE | 2018-11-16 21:52 | PN ---
DATE: 11/16/18 SUPERVISING PHYSICIAN: Dennys Lopez M.D. SUBJECTIVE: The patient continues to report abdominal pains that is not responsive to any pain management ranging between 5 down to level of 3, but is persistent. He has been tolerating a clear liquid diet but continues to have some discomfort with standing up. I have requested Dr. Lance to see the patient in consultation. OBJECTIVE: VITAL SIGNS: Temperature 98.8, pulse 84, blood pressure 134/76, respirations 16, pulse 84, O2 saturation 99% on room air. I's and O's show a negative balance of 3,215 with 1360, 4575 out. Weight is stable at 102.6 kg. He continues to have a good number of bowel movements daily. LABORATORY: No new laboratory studies today. Will plan to repeat labs in the morning. RADIOLOGY: No new radiographic studies. ASSESSMENT: 1. Gastroenteritis versus enteritis with continued diarrhea with blood cultures remaining negative. Stool culture showing no enteric growth and the patient remaining on parenteral antibiotics to include Flagyl and Levaquin. 2. Hyponatremia that continues to improve. He continues to have hypomagnesemia. 3. Malignant hypertension on admission. He is on Norvasc and his blood pressures have improved. 4. Intractable headache. He has had these headaches for several years, but are somewhat worse during this hospital stay and with the abdominal pain. They have been mostly relieved with Tylenol #4. 5. ETOH abuse. PLAN: Will await Dr. Lance's consultation. At this point I believe Dr. Lance is wanting to do a colonoscopy on the patient in the morning. Will make him NPO but keep him on clear liquids until then. At this point we still have no true diagnosis or origin of the patient's pain, although he has been on antibiotics now since admission. Will await colonoscopy results in the morning and Dr. Lance's recommendations. Until then will continue to monitor and treat as needed. #[id number] [facility]
[2018-11-16] MEDS: TEMAZEPAM 15 MG CAP PO PRN (22:02)
[2018-11-17 04:35] VITALS: O2SAT 97
[2018-11-17] MEDS: OMEPRAZOLE CAP 20 MG CAP PO SCH (05:58)
[2018-11-17] MEDS: KCL 20MEQ/D5 1/2NS 1,000 ML IVS PRN (06:02)
[2018-11-17] MEDS ORDERED: PROPOFOL 200 MG/20 ML VIAL IV ONE (07:00)
[2018-11-17] MEDS ORDERED: MIDAZOLAM INJ 2 MG/2 ML VIAL ONE (07:00)
[2018-11-17] MEDS ORDERED: LIDOCAINE 1% 10 ML VIAL INJ ONE (07:00)
[2018-11-17] MEDS ORDERED: metroNIDAZOLE IV PREMIX 500MG 100 ML IVPB ONE (07:11)
[2018-11-17] MEDS: metroNIDAZOLE IV PREMIX 500MG 500 MG in PREMIX BAG 1 BAG IVPB SCH (07:40)
[2018-11-17] MEDS: ENOXAPARIN SODIUM 40 MG/0.4 ML SYG SUBCU SCH (09:25)
[2018-11-17 10:10] VITALS: BP 143/88; TEMP 98.2
[2018-11-17] MEDS: BIFIDOBACTERIUM INFANTIS 4 MG CAP PO SCH (10:48)
[2018-11-17] MEDS: FOLIC ACID 1 MG TAB PO SCH (10:48)
[2018-11-17] MEDS: amLODIPine BESYLATE 5 MG TAB PO SCH (10:48)
[2018-11-17] MEDS ORDERED: levoFLOXacin 500MG IV 100 ML IVPB ONE (11:03)
[2018-11-17] MEDS: ACETAMINOPHEN-CAFF-BUTALBITAL 1 EA TAB PO PRN (11:42)
[2018-11-17] MEDS: levoFLOXacin 500MG IV 500 MG in PREMIX BAG 1 BAG IVPB SCH (11:43)
--- NOTE | 2018-11-17 14:17 | OP ---
DATE OF PROCEDURE: 11/17/18 PREOPERATIVE DIAGNOSIS: 1. Abdominal pain, persistent with evidence of colitis on CAT scan. POSTOPERATIVE DIAGNOSIS: 1. Colon with polyps. No evidence of colitis. PROCEDURE: Colonoscopy. SURGEON: Dennys Lance MD. ANESTHESIA: IV sedation. PROCEDURE: The patient was seen yesterday. He was counseled on colonoscopy, understood the risks and benefits and wished to proceed. In the Suite, IV sedation was given. He was appropriately positioned. The colonoscope was easily passed after digital rectal exam which was normal. There was a poor prep. The patient has been on clear liquids, but apparently did not agree to a full prep, but we did see the majority and a good look at the colon. The colonoscope was passed without difficulty to the cecum where there was a large amount of liquid stool. We irrigated and aspirated as much as we could and again got a fair view, but did not get a complete view. Upon withdrawal, there was no evidence of colitis, inflammation or stricture. In the proximal descending colon, a small 2 mm polyp was excised with cold forceps. At the rectosigmoid junction, an approximately 2 to 2.5 cm polyp was removed with a hot snare. No other polyps were identified. That area was examined and there was no bleeding. The rest of the exam was normal. Retroflexion was unremarkable. He tolerated the procedure. He was then awakened and taken to his room where likely he will be able to be discharged. #[id number] MTDD
--- NOTE | 2018-11-18 08:14 | DS ---
SUPERVISING PHYSICIAN: Dennys Lopez MD ADMISSION DIAGNOSIS: 1. Hyponatremia. 2. Hypertension. 3. Gastroenteritis. 4. Intractable headache. 5. ETOH abuse. DISCHARGE DIAGNOSIS: 1. Acute abdominal pain without any findings of acute colitis or enteritis on colonoscopy with two polyps removed with blood cultures remaining negative, stool cultures show no enteric growth and the patient completed a 7-day course of Flagyl and Levaquin. 2. Hyponatremia and hypomagnesemia, resolved with replacement. 3. Malignant hypertension on admission, showing good response to Norvasc with blood pressures stable. 4. Intractable headaches being relieved with Tylenol #4 with the patient having a history of headaches for several years. 5. Chronic alcohol abuse. REASON FOR HOSPITALIZATION: This is a 53 year-old male patient with no significant past medical history. He came to the Emergency Room with complaints of nausea, vomiting, diarrhea, nasal congestion with concern for sinus infection. He said that has been pretty much going on since Friday. He could not really tell me exactly how high his fever has gotten. He went to the Emergency Room and was seen by the E. R. physician who did some labs that showed hyponatremia. Sodium was 125. His diarrhea had only been since yesterday afternoon and this morning. He has not had any since this morning. He has not been around anyone who is sick. He does not know if he really ate anything abnormal. He was also noted to have a significantly high blood pressure. In the E. R. he was given some Toradol for his headache and Labetalol 10 mg times 1. This did bring his blood pressure down a little bit. At time of examination the patient is alert. States that he does have a little problem with equilibrium lately but does not feel dizzy at this time. He also got some Zofran in the Emergency Room as well. LABORATORY: White count 7,700 on admission. At discharge, it was 5,300. Hemoglobin and hematocrit stayed stable and at discharge were 12.4 and 35.9. RBC indices indicated a microcytic/hypochromic presentation. Platelet count was within normal limits and at discharge was 197,000. Differential did show a left shift initially on admission, but this had resolved prior to discharge. Chemistries initially on admission showed a significant hyponatremia with sodium 125, BUN less than 5 and creatinine 0.58. Serum glucose was 102, calcium 9.3, total bilirubin 1.2. Liver functions other than that were all within normal limits. Amylase and lipase were normal. After treatment with fluids, the patient had improved to sodium 134, other electrolytes were within normal limits. BUN less than 5, creatinine 0.56. Liver functions all stayed within normal limits. He did have an elevated C-reactive protein of 13.4. Urinalysis showed a small amount of blood, otherwise within normal limits. He had two positive stool occult bloods. Alcohol on admission was less than 5.4. MICROBIOLOGY: C. difficile toxin A and B negative. Stool cultures showed no enteric growth. He had positive stool leukocyte and blood cultures remained negative after 4 days. RADIOLOGY: Initially in the Emergency Room, he had a CT of the head and per radiologic interpretation showed no acute findings. He had an abdominopelvic CT on 11/11/18 and per radiologic interpretation without IV contrast showed mild multifocal acute uncomplicated colitis, nonspecific wall thickening. Abdominal ultrasound showed steatosis of the liver, normal sized vascularity and ducts. Smooth capsule with no ascites. Spleen was borderline enlarged, but no focal lesions were seen. There was minimal right renal cortical thinning, otherwise both kidneys were negative. He then had repeat abdominopelvic CT on 11/13/18 due to slow progression in clinical course and per radiologic interpretation, again, there was some wall thickening in the distal small bowel within the right lower quadrant and enteritis. He had several abdominal x-rays, the last one being on 11/15/18 with him being discharged on 11/17/18 and per radiologic interpretation that showed dilated loops of bowel with air-fluid which could be due to ileus or enteritis. CONSULTATION: He had surgical consultation with Dr. Lance. Please see his note for details. PROCEDURES: He had a colonoscopy performed by Dr. Lance. Please see his operative note for details. Findings on postoperative diagnosis showed colon with polyps, no evidence of colitis. HOSPITAL COURSE: Mr. Murray was admitted for abdominal pain on 11/10/18. He was given fluids, made NPO and was discharged on 11/17/18. During his clinical course, he continued to have a significant amount of pain. Therefore, multiple CTs were performed and two days before discharge, he was still having significant pain with slowly advancing his diet. At that point, surgical consultation was requested and Dr. Lance saw the patient in consultation. On the morning of 11/17/18, the date of discharge, he was taken to the OR Suite and colonoscopy was performed by Dr. Lance with findings of 2 polyps which were sent for pathology with no evidence of acute colitis or other infective process. It was noted that the patient has been having some issues with constipation prior to this episode. He notes he has gone up to 2 weeks at a time without having bowel movements and when he does, it seems to be really painful. I discussed with him that he probably needed to take some MiraLAX and stay regulated. He needs to avoid alcohol consumption. He had no signs of delirium tremens while he was hospitalized. He was advanced to a full liquid diet at discharge and was tolerating this without any nausea or vomiting. He was having some continued diarrhea, but had not eaten in well over 7 days. He finished a course of antibiotics to include Flagyl and Levaquin since admission from 11/10/18 to 11/17/18. Based on the colonoscopy and Dr. Lance's recommendations, the patient is discharged to followup with [facility]. Initially on admission, his vital signs showed he was significantly hypertensive with a blood pressure of 175/105. He was started on Norvasc and had good response to treatment. On the morning of discharge, vital signs showed his blood pressure was 154/97, heart rate 97, afebrile with temperature 98.7 with O2 saturation 97%. PHYSICAL EXAMINATION: GENERAL: The patient was alert and oriented and appeared to be in no acute distress. He was eating lunch. RESPIRATORY: Chest sounds clear to auscultation. HEART: Regular rate and rhythm. ABDOMEN: Soft with some tenderness noted across the right to left upper quadrant with no rebound tenderness, no guarding, no point tenderness, no peritoneal signs. EXTREMITIES: No cyanosis, clubbing or edema. NEUROLOGIC: Alert and oriented x3. PLAN: Mr. Murray was discharged with instructions to followup with Dr. Lance as needed and [facility] with appointment made for 11/25/18 at 10:15 AM. He was told to advance his diet as tolerated. He was instructed to avoid alcohol. He was instructed to return to the hospital should he have any concerning symptoms. He was encouraged to push fluids to prevent dehydration and take MiraLAX or Milk of Magnesia as needed for bowel movements to prevent any further constipation issues. Diet at discharge was regular diet as able to tolerate and advance. Activity to increase as tolerated. MEDICATIONS AT DISCHARGE: 1. Tylenol #3, 1 q.4h. as needed, #20, no refills. 2. Amlodipine 5 mg daily, #30, no refills. 3. Align 4 mg twice daily, no refills. 4. MiraLAX 1 packet daily, no refills. DISPOSITION: The patient was discharged to the care of family. CONDITION AT DISCHARGE: Stable and improved. #[id number] [facility]
--- NOTE | 2018-11-18 17:09 | CONS ---
REASON FOR CONSULTATION: Abdominal pain and colitis. HISTORY OF PRESENT ILLNESS: This is a 53 year-old white male who was admitted on 11/11/18 with a chief complaint of abdominal pain, nausea and vomiting and nasal congestion. He had no known precipitating factors and multiple loose non- bloody stools and non-bloody vomitus. At this time, he has been in the hospital for almost 6 days and still complains of diffuse intermittent abdominal pain, still having loose stools up to 3 a day, no nausea or vomiting at this time. PAST MEDICAL HISTORY: He denies any significant past medical history. He did have a history of peptic ulcer. Recent studies were suggestive of colitis. PAST SURGICAL HISTORY: None. CURRENT MEDICATIONS: BC Powder. ALLERGIES: NONE. FAMILY HISTORY: Hypertension. SOCIAL HISTORY: Denies any smoking. He does still drink at least 8 beers a night. He denies any illicit drug use in the past. REVIEW OF SYSTEMS: PHYSICAL EXAMINATION: VITAL SIGNS: He has remained afebrile. Vital signs are normal. He had been hypertensive, non-tachycardiac. GENERAL: He is conscious, alert and oriented and in no acute distress. HEENT: Head is normocephalic and atraumatic. Eyes are equal and reactive to light. Sclera icteric. Oral mucosa is moist. NECK: Supple. No adenopathy, jugular venous distention or thyromegaly. CHEST: Clear and equal bilaterally. No wheezes or crackles. HEART: Regular rate and rhythm, no murmurs, rubs, or gallops. ABDOMEN: Flat, soft, it is diffuse, mildly distractible tenderness throughout. No evidence of rigidity or peritoneal signs. No evidence of hernias. No CVA tenderness. GENITOURINARY: Deferred. EXTREMITIES: No cyanosis, clubbing, or edema. NEUROLOGIC: He is moving all extremities normally with no evidence of deficiencies. LABORATORY: His latest lab shows a white count of 5, hematocrit 36, platelet count 197,000. BNP is normal. Creatinine is 0.5. Liver function tests are normal. C-reactive protein 13.5 which is high of unknown uncertain significance in this case. STUDIES: CT scan was done and repeated on 11/13/18. IMPRESSION/PLAN: Mild wall thickening in the distal small bowel consistent with enteritis and previous CT. On 11/11/18, study showed a mild multifocal acute, uncomplicated colitis. On my personal read of the CT scan, the colitis was minimal with no evidence of perforation, no evidence of obstruction. The patient continues to have persistent pain and stools were heme positive. There is evidence of colitis as well as terminal ileitis. For this reason, I recommended a colonoscopy to rule out colitis or inflammatory bowel disease. The risks and benefits of the procedure were discussed with the patient and the patient wishes to proceed. #[id number] [facility]
== END 2018-11-17 13:30 | disposition home or self-care (01) | DRG 641 ==
LOC: ER 14:56 → MS 20:16 → OBSVTOIN 11-11 12:19
PROVIDERS: ADMIT Nurse Practitioner; ATTEND Nurse Practitioner Family
PROC: BW2110Z Computerized Tomography (CT Scan) of Abdomen and Pelvis using Low Osmolar Contrast, Unenhanced and Enhanced (ICD-10-PCS; 2018-11-13)
PROC: 0DBN8ZX Excision of Sigmoid Colon, Via Natural or Artificial Opening Endoscopic, Diagnostic (ICD-10-PCS; 2018-11-17)
PROC: 0DBM8ZX Excision of Descending Colon, Via Natural or Artificial Opening Endoscopic, Diagnostic (ICD-10-PCS; principal; 2018-11-17 09:30)
DX: E87.1 Hypo-osmolality and hyponatremia (principal); R19.7 Diarrhea, unspecified; R10.13 Epigastric pain; R10.12 Left upper quadrant pain; I10 Essential (primary) hypertension; R51 Headache; E83.42 Hypomagnesemia; R19.5 Other fecal abnormalities; K63.5 Polyp of colon; K59.00 Constipation, unspecified; F10.10 Alcohol abuse, uncomplicated